=== PATIENT | male | born 2005 | race Two or more races ===

== ENCOUNTER 2023-06-18 18:01 | Emergency (ER) | payer SELFPAY ==
[2023-06-18] MEDS ORDERED: Fluorescein 1 MG Ophth Strip EYERT ONE (18:25)
[2023-06-18] MEDS ORDERED: Proparacaine 0.5% Ophth Soln 15 ML Bottle EYEBOTH ONE (18:25)
[2023-06-18] MEDS ORDERED: Ketorolac 0.5% Ophth Soln 5 ML Bottle EYERT ONE (18:36)
[2023-06-18] MEDS ORDERED: Erythromycin Base 0.5% Ophth Oint 1 GM Tube EYERT ONE (18:36)
== END 2023-06-18 19:35 | disposition home or self-care (01) ==
LOC: JD.ED 18:01
DX: S05.01XA Injury of conjunctiva and corneal abrasion without foreign body, right eye, initial encounter (principal); F17.210 Nicotine dependence, cigarettes, uncomplicated; X58.XXXA Exposure to other specified factors, initial encounter
CPT/HCPCS: 99283; A9270; J3490